=== PATIENT | female | born 1980 ===

== ENCOUNTER 2017-11-15 19:28 | Emergency (ER) | payer MEDICAID ==
[2017-11-15 19:59] VITALS: BP 119/76; PULSE 85; RESP 16; TEMP 98.3; O2SAT 98
--- NOTE | 2017-11-15 20:35 | ED PDOC ---
HPI: General Adult Time Seen by Provider: 11/15/17 20:08 Chief Complaint (Nursing): ENT Problem Chief Complaint (Provider): Lump behind left ear History Per: Patient History/Exam Limitations: no limitations Onset/Duration Of Symptoms: Days Current Symptoms Are (Timing): Still Present Additional Complaint(s): 37 year old female presents to the emergency department with a complaint of a painful lump to left ear region that she first noticed yesterday. Patient denies any fever or chills, no drainage from left ear or hearing loss. Past Medical History Reviewed: Historical Data, Nursing Documentation, Vital Signs Vital Signs: Last Vital Signs Temp 98.3 F 11/15/17 19:55 Pulse 85 11/15/17 19:55 Resp 16 11/15/17 19:55 BP 119/76 11/15/17 19:55 Pulse Ox 98 11/15/17 20:47 - Medical History PMH: No Chronic Diseases - Surgical History Other surgeries: Tubal ligation - Family History Family History: States: No Known Family Hx - Living Arrangements Living Arrangements: With Family - Social History Current smoker - smoking cessation education provided: Yes (2 packs a day) Alcohol: None Drugs: Denies - Home Medications Home Medications: Ambulatory Orders Medication Instructions Recorded Ibuprofen [Motrin Tab] 800 mg PO Q8 PRN #20 tab 11/15/17 - Allergies Allergies/Adverse Reactions: Allergies Allergy/AdvReac Type Severity Reaction Status Date / Time No Known Allergies Allergy Verified 11/15/17 19:55 Review of Systems ROS Statement: Except As Marked, All Systems Reviewed And Found Negative (As per HPI, otherwise negative) Constitutional: Negative for: Fever ENT: Positive for: Other (Lump noted behind the left ear) Musculoskeletal: Negative for: Neck Pain Neurological: Negative for: Headache, Dizziness Physical Exam - Reviewed Nursing Documentation Reviewed: Yes Vital Signs Reviewed: Yes - Physical Exam Appears: Positive for: Well, Non-toxic, No Acute Distress Head Exam: Positive for: ATRAUMATIC, NORMAL INSPECTION Skin: Positive for: Normal Color. Negative for: Rash ENT: Positive for: Normal ENT Inspection, Other (0.5 cm superficial cyst noted distal to left ear lobe, minimal tenderness to palpation. No erythema. No mastoid tenderness) Neck: Positive for: Normal, Supple Cardiovascular/Chest: Positive for: Regular Rate, Rhythm Respiratory: Positive for: Normal Breath Sounds. Negative for: Wheezing Neurologic/Psych: Positive for: Alert, Oriented (x3) - Laboratory Results Urine POC: Negative - ECG O2 Sat by Pulse Oximetry: 98 (RA) Pulse Ox Interpretation: Normal Medical Decision Making Medical Decision Making: Time: 2032 Initial Impression: Simple cyst of skin Initial Plan: Urine preg Motrin 600 mg PO Reevaluation Patient given prescription for Motrin for pain control. Advised warm compresses to affected area. Patient was instructed to monitor area for any worsening symptoms and follow up with primary doctor if symptoms worsen. Scribe Attestation: Documented by Toya Silva, acting as a scribe for Ny Avilez PA-C. Provider Scribe Attestation: All medical record entries made by the Scribe were at my direction and personally dictated by me. I have reviewed the chart and agree that the record accurately reflects my personal performance of the history, physical exam, medical decision making, and the department course for this patient. I have also personally directed, reviewed, and agree with the discharge instructions and disposition. Disposition - Clinical Impression Clinical Impression: Cyst of skin - Patient ED Disposition Is Patient to be Admitted: No Counseled Patient/Family Regarding: Diagnosis, Need For Followup, Rx Given, Smoking Cessation - Disposition Referrals: [facility] [Outside] Disposition: Routine/Home Disposition Time: 21:01 Condition: STABLE Additional Instructions: Take prescription meds as directed as needed for pain. Apply warm compresses to affected area. Monitor for any worsening symptoms and follow-up with primary doctor if worse. Prescriptions: Ibuprofen [Motrin Tab] 800 mg PO Q8 PRN #20 tab PRN Reason: Pain, Moderate (4-7) Instructions: [place] , Quitting Smoking Forms: [employer] ([place])
== END 2017-11-15 21:19 | disposition home or self-care (01) ==
LOC: H.ER 19:28
DX: L72.0 Epidermal cyst (principal)